=== PATIENT | female | born 1965 | race African-American/Black ===

== ENCOUNTER → 2018-03-22 08:59 | Outpatient (CLI) | payer OTHER, MEDICAID, SELFPAY ==
--- NOTE | 2018-03-22 | DI.RAD.S_ITS ---
PROCEDURE: XR CHEST 2V INDICATIONS: SHORTNESS OF BREATH TECHNIQUE: 2 views of the chest were acquired. COMPARISON: None. FINDINGS: Surgical changes and devices: None. Lungs and pleura: No pleural effusions or pneumothorax. Lungs are clear. Mediastinum: Mediastinal contours are normal. Heart size is normal. Bones and chest wall: No suspicious bony abnormalities. Soft tissues appear unremarkable. IMPRESSION: Negative chest. Dictated by: Bill Loza M.D. on 03/22/2018 at 13:17 Approved by: Bill Loza M.D. on 03/22/2018 at 13:18
--- NOTE | 2018-03-28 09:28 | PM.PFT.1 ---
Pulmonary Function Test Referral & Results Date Patient Seen: 03/22/18 Requesting provider: Shavonne Ahumada Results: The spirometry demonstrates an FVC of 2.67 L which is 85% of predicted. The FEV1 was measured at 2.41 L which is 96% of predicted. The FEV1/FVC ratio was 90 which is 111% of predicted. Following the administration of bronchodilator there was no change. Lung volumes show an SVC of 2.34 L which is 67% of predicted. No diffusing capacity was performed, as patient was unable to reach 85% of vital capacity on this test The maximum voluntary ventilation was reduced. Interpretation: This study demonstrates mild restrictive lung disease.
== END ==
PROVIDERS: Visit Provider Internal Medicine Critical Care Medicine
DX: R06.02 Shortness of breath (principal)
CPT/HCPCS: 71046; 94010; 94060; 94726

== ENCOUNTER → 2020-03-05 11:17 | Outpatient (CLI) | payer OTHER, MEDICAID, SELFPAY ==
--- NOTE | 2020-03-05 | DI.US.S_ITS ---
PROCEDURE: US PELVIC COMPLETE INDICATIONS: IRREGULAR VAGINAL BLEEDING TECHNIQUE: Real-time scanning was performed of the pelvic organs, with image documentation. Additional endovaginal scanning was necessary due to incomplete visualization of the adnexal and endometrial structures by transabdominal scanning. COMPARISON: None. FINDINGS: Transabdominal scanning: Limited scanning through the kidneys shows no hydronephrosis. No pathologic free abdominal or pelvic fluid. Endovaginal scanning: Uterus: Uterus is normal in size at 6.0 x 6.1 x 10.8 cm, anteverted. The endometrium measures 20.1 mm in combined thickness, abnormally thickened and heterogeneous.. There is what appears to be a midline posterior subserosal fibroid measuring up to 2.6 x 2.3 x 2.8 cm. Ovaries: Relatively high positioning of what appears to be the left ovary, versus pedunculated fibroid at the uterine fundus on the left. This measures up to 2.8 x 2.1 x 2.4 cm. The right ovary is conventional in position, and measures up to 3.7 x 2.2 x 3.2 cm. IMPRESSION: The dominant abnormality in this examination is abnormal heterogeneous thickening of the endometrial lining measuring up to 20.1 mm raising concern for endometrial neoplasm as the underlying cause. Uterine fibroid in the subserosal midline posterior uterine margin is present measuring approximately 2.8 cm but there also is what appears to be either a pedunculated fibroid exophytic from the uterine fundus on the left measuring up to 2.8 cm. This could not be clearly seen on transvaginal ultrasound due to its positioning. Dictated by: Chris Alvarado M.D. on 03/05/2020 at 14:17 Approved by: Chris Alvarado M.D. on 03/05/2020 at 14:23
== END ==
PROVIDERS: PCP Physician Assistant Medical
DX: N92.6 Irregular menstruation, unspecified (principal); D25.2 Subserosal leiomyoma of uterus; R93.89 Abnormal findings on diagnostic imaging of other specified body structures
CPT/HCPCS: 76856